=== PATIENT | female | born 1995 | race Two or more races ===

== ENCOUNTER 2018-06-22 16:11 | Emergency (ER) | payer OTHER ==
[~2018-06-22] VITALS: Ht 170.2 cm; Wt 56.7 kg
[2018-06-22] MEDS ORDERED: IV NORMAL SALINE 1000 ML BAG IV ONE (18:00)
[2018-06-22] MEDS ORDERED: DEXAMETHASONE SOD PHOSPHATE 4 MG INJ IV ONE (18:00)
[2018-06-22] MEDS ORDERED: KETOROLAC TROMETHAMINE 30 MG INJ IVP ONE (18:00)
[2018-06-22] MEDS ORDERED: CLINDAMYCIN PHOSPHATE IV 600 MG in IV DEXTROSE 5% 100 ML IV ONE (18:00)
[2018-06-22 18:28] LABS: BASOPHILS # (AUTO) 0.1 K/uL (0.0-8.0); BASOPHILS % (AUTO) 1.3 % (0.0-2.0); EOSINOPHILS % (AUTO) 0.2 % (0.0-7.0); HEMATOCRIT 44.7 % (31.2-41.9); LYMPHOCYTES # (AUTO) 1.4 K/uL (20.0-40.0); LYMPHOCYTES % (AUTO) 32.5 % (20.5-51.5); MEAN CORPUSCULAR HEMOGLOBIN 29.6 uug (24.7-32.8); MEAN CORPUSCULAR HGB CONC 34 g/dL (32.3-35.6); MEAN CORPUSCULAR VOLUME 88.4 fL (75.5-95.3); MONOCYTES # (AUTO) 0.6 K/uL (2.0-10.0); MONOCYTES % (AUTO) 13.7 % (0.0-11.0); NEUTROPHILS # (AUTO) 2.2 K/uL (1.8-8.9); NEUTROPHILS % (AUTO) 52.3 % (38.5-71.5); PLATELET COUNT (AUTO) 256 K/uL (179-408); RED BLOOD CELL COUNT(AUTO) 5.05 MIL/uL (3.63-4.92); WHITE BLOOD COUNT (AUTO) 4.3 K/uL (3.8-11.8)
[2018-06-22] MEDS ORDERED: CLINDAMYCIN PHOSPHATE 600 MG/4 ML VIAL ONE (18:32)
[2018-06-22] MEDS ORDERED: DEXAMETHASONE SOD PHOSPHATE 10 MG INJ ONE (18:32)
[2018-06-22] MEDS ORDERED: KETOROLAC TROMETHAMINE 30 MG INJ ONE (18:32)
[2018-06-22 18:34] LABS: CREATININE 0.8 mg/dL (0.6-1.3); POTASSIUM 3.9 mmol/L (3.5-5.1)
[2018-06-22 18:39] LABS: BILIRUBIN,DIRECT 0.1 mg/dL (0.0-0.2); BILIRUBIN,TOTAL 0.3 mg/dL (0.2-1.0); TOTAL PROTEIN, SERUM 8.7 g/dL (6.4-8.2)
--- NOTE | 2018-06-22 18:46 | NUR ---
PATIENT WAS SEEN BY MD FOR C/O MOUTH SORENESS, LIP ABNORAMLITY AND SORE THROAT. IV PLACED, LABS DRAWN. MEDICATION GIVEN ORDERED
--- NOTE | 2018-06-22 19:01 | NUR ---
PATIENT STATES PAIN HAS DIMINISHED.
--- NOTE | 2018-06-22 19:01 | NUR ---
HAND OFF REPORT GIVEN TO JEANETH INFANTE
--- NOTE | 2018-06-22 20:15 | NUR ---
Patient discharged to home in stable conditon. Written and verbal after care instructions given. Patient verbalizes understanding of instructions. Pt ambulated out of ER with steady gait, no acute signs of distress, VSS, all belongings taken, IV site discontinued.
[2018-06-22 20:18] VITALS: BP 113/80
== END 2018-06-22 20:18 | disposition home or self-care (01) ==
LOC: ER 16:13
DX: K12.1 Other forms of stomatitis (principal); E86.0 Dehydration; Z88.6 Allergy status to analgesic agent
CPT/HCPCS: 36415; 71045; 80048; 80076; 83605; 84439; 84443; 84479; 84484; 84703; 85025; 85730; 87040 ×2; 93005; 96365; 96366; 96375; 99285; A4663; J1100; J1885; J3490 ×2; J7030; 70030-TC